=== PATIENT | female | born 1995 | race Caucasian/White ===

== ENCOUNTER 2017-12-10 08:58 | Emergency (ER) | payer SELFPAY ==
[~2017-12-10] VITALS: Ht 160 cm; Wt 65.4 kg
[2017-12-10 09:03] VITALS: BP 128/81
--- NOTE | 2017-12-10 09:15 | NUR ---
C/O THROAT PAIN---PAINFUL TO SWALLOW X YESTERDAY . DENIES N/V/D; SKIN IS PINK/WARM/DRY; AAOX4 WITH EVEN AND STEADY GAIT; LUNGS CLEAR BL; HR EVEN AND REGULAR; PT DENIES ANY FEVER, CP, SOB, OR COUGH AT THIS TIME; PATIENT STATES PAIN OF 10/10 AT THIS TIME; VSS; PATIENT SITTING IN CHAIR .ER MD MADE AWARE OF PT STATUS.
[2017-12-10 12:01] VITALS: BP 118/78
--- NOTE | 2017-12-10 12:02 | NUR ---
Patient discharged with v/s stable. Written and verbal after care instructions given and explained. Patient alert, oriented and verbalized understanding of instructions. Ambulatory with steady gait. All questions addressed prior to discharge. ID band removed. Patient advised to follow up with PMD. Rx of PREDNISONE,AMOXICILLIN, AND IBUPROFEN given. Patient educated on indication of medication including possible reaction and side effects. Opportunity to ask questions provided and answered.
--- NOTE | 2017-12-12 15:21 | NUR ---
THROAT CULTURE RECEIVED. PT SENT HOME ON AMOXCILLIN. DR. THRASHER STATED THE TREATMENT WAS APPROPRIATE.
== END 2017-12-10 12:02 | disposition home or self-care (01) ==
LOC: MED 08:58
DX: J02.0 Streptococcal pharyngitis (principal)
CPT/HCPCS: 87081; 99284

== ENCOUNTER 2018-04-10 16:15 | Emergency (ER) | payer SELFPAY ==
[~2018-04-10] VITALS: Ht 160 cm; Wt 65.3 kg
[2018-04-10 16:22] VITALS: BP 132/74
--- NOTE | 2018-04-10 16:27 | NUR ---
PT AMBULATES TO BED 11
--- NOTE | 2018-04-10 16:32 | NUR ---
22 YO F BIB SELF W/ C/O PAINFUL URINATION 05/16 FOR 1 WEEK. DENIES FEVER/CHILLS, N/V. PT AAOX4. GCS 15. CMS INTACT. RR EVEN AND UNLABORED. LUNGS CLEAR. ER MD DRAPER NOTIFIED. PT NEEDS MET. SAFETY PRECAUTIONS IN PLACE. WILL CONTINUE TO MONITOR.
[2018-04-10 16:54] LABS: APPEARANCE,URINE CLEAR (CLEAR); BILIRUBIN,URINE NEGATIVE (NEGATIVE); BLOOD, URINE NEGATIVE (NEGATIVE); COLOR,URINE YELLOW (YELLOW); LEUKOCYTE ESTERASE ,URINE NEGATIVE (NEGATIVE); NITRITE, URINE NEGATIVE (NEGATIVE); UGLUCOSE NEGATIVE (NEGATIVE)
[2018-04-10 17:06] VITALS: BP 132/74
--- NOTE | 2018-04-10 17:06 | NUR ---
Patient discharged with v/s stable. Written and verbal after care instructions given and explained. Patient alert, oriented and verbalized understanding of instructions. Ambulatory with steady gait. All questions addressed prior to discharge. ID band removed. Patient advised to follow up with PMD. Rx of Doxycycline and Voltaren given. Patient educated on indication of medication including possible reaction and side effects. Opportunity to ask questions provided and answered.
[2018-04-10 17:08] LABS: BARBITURATE, URINE NEG. ng/ml (NEG <=200); BENZODIAZEPINE, URINE NEG. ng/mL (NEG <=200); CANNABINOID, URINE NEG. ng/mL (NEG <=50); COCAINE, URINE NEG. ng/mL (NEG <=300); OPIATE, URINE NEG. ng/mL (NEG <=2000); PHENCYCLIDINE SCREEN,URINE NEG. ng/mL (NEG <=25)
== END 2018-04-10 17:06 | disposition home or self-care (01) ==
LOC: MED 16:15
DX: N39.0 Urinary tract infection, site not specified (principal); N64.4 Mastodynia
CPT/HCPCS: 80305; 81003; 81025; 99284

== ENCOUNTER 2018-04-27 12:26 | Emergency (ER) | payer MEDICAID ==
[~2018-04-27] VITALS: Ht 160 cm; Wt 62.6 kg
[2018-04-27 12:40] VITALS: BP 112/77
--- NOTE | 2018-04-27 12:44 | NUR ---
Patient ambulated to bed 4. RN evaluating patient at bedside.
--- NOTE | 2018-04-27 13:00 | NUR ---
PT C/O SHARP ABD PAIN 7/10 RADIATING FROM LQ TO RQ X 2 DAYS WITH NAUSEA. DENIES VOMITING OR FEVER/CHILLS. HX: UTERINE FIBROIDS
[2018-04-27] MEDS ORDERED: LORazepam 2 MG/ML VIAL IM ONE (13:15)
[2018-04-27 13:29] LABS: APPEARANCE,URINE CLEAR (CLEAR); BILIRUBIN,URINE NEGATIVE (NEGATIVE); BLOOD, URINE NEGATIVE (NEGATIVE); COLOR,URINE YELLOW (YELLOW); LEUKOCYTE ESTERASE ,URINE NEGATIVE (NEGATIVE); NITRITE, URINE NEGATIVE (NEGATIVE); UGLUCOSE NEGATIVE (NEGATIVE)
[2018-04-27 13:40] LABS: BARBITURATE, URINE NEG. ng/ml (NEG <=200); BENZODIAZEPINE, URINE NEG. ng/mL (NEG <=200); CANNABINOID, URINE NEG. ng/mL (NEG <=50); COCAINE, URINE NEG. ng/mL (NEG <=300); OPIATE, URINE POS. ng/mL (NEG <=2000); PHENCYCLIDINE SCREEN,URINE NEG. ng/mL (NEG <=25)
[2018-04-27 14:36] VITALS: BP 122/71
--- NOTE | 2018-04-27 14:36 | NUR ---
Patient discharged with v/s stable. Written and verbal after care instructions given and explained. Patient alert, oriented and verbalized understanding of instructions. Ambulatory with steady gait. All questions addressed prior to discharge. ID band removed. Patient advised to follow up with PMD. Rx of Vistaril given. Patient educated on indication of medication including possible reaction and side effects. Opportunity to ask questions provided and answered.
== END 2018-04-27 14:36 | disposition home or self-care (01) ==
LOC: MED 12:26
DX: G89.29 Other chronic pain (principal); F41.0 Panic disorder [episodic paroxysmal anxiety]; Z88.8 Allergy status to other drugs, medicaments and biological substances; Z88.6 Allergy status to analgesic agent
CPT/HCPCS: 80305; 81003; 81025; 96372; 99284; J2060

== ENCOUNTER 2018-07-12 09:12 | Emergency (ER) | payer MEDICAID, OTHER ==
[~2018-07-12] VITALS: Ht 160 cm; Wt 61.7 kg
[2018-07-12 09:18] VITALS: BP 130/86
--- NOTE | 2018-07-12 09:28 | NUR ---
PT AMB TO BED 11
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
--- NOTE | 2018-07-12 09:33 | NUR ---
Patient being evaluated by DR DRAPER at bedside.
[2018-07-12] MEDS ORDERED: traMADol 50 MG TAB PO ONE (09:35)
[2018-07-12 10:03] LABS: APPEARANCE,URINE CLEAR (CLEAR); BILIRUBIN,URINE NEGATIVE (NEGATIVE); BLOOD, URINE NEGATIVE (NEGATIVE); COLOR,URINE YELLOW (YELLOW); LEUKOCYTE ESTERASE ,URINE NEGATIVE (NEGATIVE); NITRITE, URINE NEGATIVE (NEGATIVE); PH,URINE 5.5 (5.0-9.0); UGLUCOSE NEGATIVE (NEGATIVE)
[2018-07-12 10:07] LABS: BARBITURATE, URINE NEG. ng/ml (NEG <=200); BENZODIAZEPINE, URINE NEG. ng/mL (NEG <=200); CANNABINOID, URINE NEG. ng/mL (NEG <=50); COCAINE, URINE NEG. ng/mL (NEG <=300); OPIATE, URINE NEG. ng/mL (NEG <=2000); PHENCYCLIDINE SCREEN,URINE NEG. ng/mL (NEG <=25)
[2018-07-12 11:23] VITALS: BP 129/77
--- NOTE | 2018-07-12 11:23 | NUR ---
Patient discharged with v/s stable. Written and verbal after care instructions given and explained. Patient alert, oriented and verbalized understanding of instructions. Ambulatory with steady gait. All questions addressed prior to discharge. ID band removed. Patient advised to follow up with PMD. Rx of FIORECET given. Patient educated on indication of medication including possible reaction and side effects. Opportunity to ask questions provided and answered.
== END 2018-07-12 11:23 | disposition home or self-care (01) ==
LOC: MED 09:12
DX: R51 Headache (principal); Z88.1 Allergy status to other antibiotic agents; Z88.6 Allergy status to analgesic agent
CPT/HCPCS: 70450; 72125; 80305; 81003; 81025; 99285

== ENCOUNTER 2019-05-16 12:20 | Emergency (ER) | payer SELFPAY ==
[~2019-05-16] VITALS: Ht 160 cm; Wt 72.6 kg
[2019-05-16 12:30] VITALS: BP 131/70
--- NOTE | 2019-05-16 12:41 | NUR ---
23/f bib self urinary burning sensation x 2 weeks. denies trauma or n/v/d. PATIENT STATES PAIN OF 8/10 when urinated. PATIENT POSITIONED FOR COMFORT; HOB ELEVATED; BEDRAILS UP X1; BED DOWN. ER MD MADE AWARE OF PT STATUS.
--- NOTE | 2019-05-16 12:46 | NUR ---
DR. WEBBER AT BEDSIDE EVALUATING PATIENT AT THIS TIME.
[2019-05-16 13:01] VITALS: BP 127/68
[2019-05-16 14:22] LABS: APPEARANCE,URINE HAZY (CLEAR); BILIRUBIN,URINE NEGATIVE (NEGATIVE); BLOOD, URINE NEGATIVE (NEGATIVE); COLOR,URINE YELLOW (YELLOW); LEUKOCYTE ESTERASE ,URINE NEGATIVE (NEGATIVE); NITRITE, URINE NEGATIVE (NEGATIVE); UGLUCOSE NEGATIVE (NEGATIVE)
== END 2019-05-16 13:07 | disposition home or self-care (01) ==
LOC: MED 12:20
DX: N39.0 Urinary tract infection, site not specified (principal); Z88.2 Allergy status to sulfonamides; Z88.1 Allergy status to other antibiotic agents; Z88.8 Allergy status to other drugs, medicaments and biological substances
CPT/HCPCS: 81003; 81025; 99283

== ENCOUNTER 2020-08-16 16:00 | Emergency (ER) | payer OTHER ==
[~2020-08-16] VITALS: Ht 157.5 cm; Wt 0.5 kg
[2020-08-16 16:08] VITALS: BP 140/77
[2020-08-16] MEDS ORDERED: HYDROcodone/APAP 5/325 MG 1 TAB TAB PO ONE (16:35)
[2020-08-16] MEDS ORDERED: DOCUSATE SODIUM 100 MG GELCAP PO ONE (16:35)
[2020-08-16 16:54] VITALS: BP 140/77
== END 2020-08-16 16:54 | disposition home or self-care (01) ==
LOC: MED 16:00
DX: H65.93 Unspecified nonsuppurative otitis media, bilateral (principal); R51.9 Headache, unspecified; G93.0 Cerebral cysts; Z88.1 Allergy status to other antibiotic agents; Z88.2 Allergy status to sulfonamides; Z88.6 Allergy status to analgesic agent
CPT/HCPCS: 81002; 81025; 99283

== ENCOUNTER 2020-12-24 05:06 | Emergency (ER) | payer OTHER ==
[~2020-12-24] VITALS: Ht 160 cm; Wt 78.9 kg
[2020-12-24 05:17] VITALS: BP 121/82
[2020-12-24] MEDS ORDERED: NACL 0.9% 1,000 ML IV ONE (05:30)
[2020-12-24] MEDS ORDERED: ONDANSETRON 4 MG/2 ML VIAL IVP ONE (05:35)
[2020-12-24 06:51] LABS: BASOPHILS # (AUTO) 0.1 K/uL (0.00-0.22); BASOPHILS % (AUTO) 0.8 % (0.0-2.0); EOSINOPHILS # (AUTO) 0.2 K/uL (0-0.4); HEMATOCRIT 34.2 % (36-48); HEMOGLOBIN 11.6 g/dL (12.0-16.0); LYMPHOCYTES # (AUTO) 2.4 K/uL (2.5-16.5); LYMPHOCYTES % (AUTO) 24.2 % (20.5-51.1); MEAN CORPUSCULAR HEMOGLOBIN 28 pg (27-31); MEAN CORPUSCULAR HGB CONC 34 g/dL (33-37); MEAN CORPUSCULAR VOLUME 81.8 fL (80-94); MONOCYTES # (AUTO) 0.6 K/uL (0.8-1.0); MONOCYTES % (AUTO) 6.1 % (1.7-9.3); NEUTROPHILS # (AUTO) 6.7 K/uL (1.8-7.7); NEUTROPHILS % (AUTO) 66.9 % (42.2-75.2); PLATELET COUNT (AUTO) 264 K/uL (140-450); RED BLOOD CELL COUNT(AUTO) 4.18 MIL/uL (4.20-5.40); RED CELL DISTRIBUTION WIDTH 14.2 % (11.6-13.7)
[2020-12-24] MEDS ORDERED: ACETAMINOPHEN 325 MG TAB PO ONE (07:00)
[2020-12-24] MEDS ORDERED: METOCLOPRAMIDE 10 MG/2 ML INJ VIAL IVP ONE (07:00)
[2020-12-24 07:08] LABS: ALBUMIN 3.6 g/dL (3.4-5.0); BILIRUBIN,DIRECT 0.1 mg/dL (0.0-0.3); PHOSPHORUS 4.1 mg/dL (2.5-4.9); TOTAL BILIRUBIN 0.3 mg/dL (0.0-1.0)
[2020-12-24 07:09] LABS: BILIRUBIN,URINE NEGATIVE (NEGATIVE); BLOOD, URINE NEGATIVE (NEGATIVE); COLOR,URINE YELLOW (YELLOW); LEUKOCYTE ESTERASE ,URINE 1+ (NEGATIVE); NITRITE, URINE NEGATIVE (NEGATIVE); UGLUCOSE NEGATIVE (NEGATIVE)
[2020-12-24 07:14] LABS: ANION GAP 14.7 (8-16); CARBON DIOXIDE 24.6 mmol/L (21-32); POTASSIUM 3.3 mmol/L (3.5-5.1)
[2020-12-24 07:15] LABS: CREATININE 0.5 mg/dL (0.6-1.3)
[2020-12-24 07:26] LABS: APPEARANCE,URINE SLIGHTLY HAZY (CLEAR)
[2020-12-24 07:27] LABS: RBC,URINE 0-5 /HPF (0-5); WBC,URINE 0-5 /HPF (0-5)
[2020-12-24] MEDS ORDERED: ACET-2619 PO (07:41)
[2020-12-24] MEDS ORDERED: DOXY1TCP PO (07:41)
[2020-12-24 09:21] VITALS: BP 121/82
== END 2020-12-24 09:21 | disposition home or self-care (01) ==
LOC: MED 05:06
DX: O00.01 Abdominal pregnancy with intrauterine pregnancy (principal); O99.612 Diseases of the digestive system complicating pregnancy, second trimester; K80.20 Calculus of gallbladder without cholecystitis without obstruction; Z3A.18 18 weeks gestation of pregnancy; Z88.2 Allergy status to sulfonamides; Z88.8 Allergy status to other drugs, medicaments and biological substances
CPT/HCPCS: 36415; 76705; 80048; 80076; 81001; 81025; 83690; 83735; 84100; 85025; 86886; 86900; 86901; 87040; 87086; 96374; 96375; 99284; J2405; J2765; J2790

== ENCOUNTER 2022-07-23 15:44 | Emergency (ER) | payer OTHER ==
[~2022-07-23] VITALS: Ht 160 cm; Wt 67.1 kg
[~2022-07-23 15:44] MED LIST: ACET-2619 PO; DOXY1TCP PO
[2022-07-23 15:59] VITALS: BP 127/85
[2022-07-23 16:58] LABS: BASOPHILS % (AUTO) 0.6 % (0.0-2.0); EOSINOPHILS # (AUTO) 0.1 K/uL (0-0.4); EOSINOPHILS % (AUTO) 1.5 % (0.0-4.0); HEMATOCRIT 38.2 % (36-48); HEMOGLOBIN 12.8 g/dL (12.0-16.0); LYMPHOCYTES # (AUTO) 2.6 K/uL (2.5-16.5); LYMPHOCYTES % (AUTO) 37.8 % (20.5-51.1); MEAN CORPUSCULAR HEMOGLOBIN 28 pg (27-31); MEAN CORPUSCULAR HGB CONC 34 g/dL (33-37); MEAN CORPUSCULAR VOLUME 83.2 fL (80-94); MONOCYTES # (AUTO) 0.2 K/uL (0.8-1.0); MONOCYTES % (AUTO) 3.6 % (1.7-9.3); NEUTROPHILS # (AUTO) 3.8 K/uL (1.8-7.7); NEUTROPHILS % (AUTO) 56.5 % (42.2-75.2); PLATELET COUNT (AUTO) 265 K/uL (140-450); RED BLOOD CELL COUNT(AUTO) 4.59 MIL/uL (4.20-5.40); RED CELL DISTRIBUTION WIDTH 13.4 % (11.6-13.7); WHITE BLOOD COUNT (AUTO) 6.8 K/uL (4.8-10.8)
[2022-07-23 17:18] LABS: ANION GAP 13.2 (8-16); ASPARTATE AMINOTRANSFERASE 11 U/L (15-37); CARBON DIOXIDE 26.1 mmol/L (21-32); CHLORIDE 105 mmol/L (98-107); GLUCOSE 109 mg/dL (74-106); POTASSIUM 3.3 mmol/L (3.5-5.1); SODIUM SERUM 141 mmol/L (136-145); TOTAL BILIRUBIN 0.3 mg/dL (0.0-1.0); UREA NITROGEN, BLOOD 13 mg/dL (7-18)
[2022-07-23 17:31] LABS: CREATININE 0.6 mg/dL (0.6-1.3); GFR ARICAN-AMERICAN 157 mL/min (>90)
[2022-07-23] MEDS ORDERED: ACET-10509 PO (18:42)
[2022-07-23] MEDS ORDERED: LID5T TP (18:42)
[2022-07-23] MEDS ORDERED: METH-1681 PO (18:42)
--- NOTE | 2022-07-23 19:25 | NUR ---
donna ling assessing patient in A
[2022-07-23 19:30] VITALS: BP 125/83
--- NOTE | 2022-07-23 19:30 | NUR ---
Patient seen and assessed by NEDA ling. no nursing interventions done. ID band removed. Patient advised to follow up with PMD. Rx of acetaminophen, lidocaine, robaxin given. Patient educated on indication of medication including possible reaction and side effects. Opportunity to ask questions provided and answered.
== END 2022-07-23 19:30 | disposition home or self-care (01) ==
LOC: MED 15:44
DX: R07.89 Other chest pain (principal)
CPT/HCPCS: 36415; 71045; 80053; 84484; 85025; 85379; 93005; 99285

== ENCOUNTER 2022-09-13 01:49 | Emergency (ER) | payer OTHER ==
[~2022-09-13] VITALS: Ht 160 cm; Wt 56.7 kg
[~2022-09-13 01:49] MED LIST changes: +ACET-10509 PO; +LID5T TP; +METH-1681 PO
[2022-09-13 02:05] VITALS: BP 124/80
--- NOTE | 2022-09-13 02:09 | NUR ---
TO LOBBY A/W BED AMBULATORY
--- NOTE | 2022-09-13 04:00 | NUR ---
RECEIVED IN BED 5 WITH C/O POSSIBLE RETENTION OF TAMPON PARTICLES
--- NOTE | 2022-09-13 04:15 | NUR ---
PELVIC EXAM DONE PER DR ROMERO, FEMALE REGISTERED PHYSICAL THERAPIST (MYSELF) ACCOMPANYING
[2022-09-13 04:25] VITALS: BP 124/80
--- NOTE | 2022-09-13 04:25 | NUR ---
Patient discharged with v/s stable. Written and verbal after care instructions given and explained. Patient verbalized understanding. Ambulatory with steady gait. All questions addressed prior to discharge. Advised to follow up with PMD.
== END 2022-09-13 04:25 | disposition home or self-care (01) ==
LOC: MED 01:49
DX: T19.2XXA Foreign body in vulva and vagina, initial encounter (principal); N94.89 Other specified conditions associated with female genital organs and menstrual cycle; Z88.1 Allergy status to other antibiotic agents; Z88.2 Allergy status to sulfonamides; Z88.8 Allergy status to other drugs, medicaments and biological substances; Z79.899 Other long term (current) drug therapy; X58.XXXA Exposure to other specified factors, initial encounter; Y93.89 Activity, other specified; Y92.89 Other specified places as the place of occurrence of the external cause; Y99.8 Other external cause status
CPT/HCPCS: 99281; 99284

== ENCOUNTER 2022-10-05 04:23 | Emergency (ER) | payer OTHER ==
[~2022-10-05] VITALS: Ht 160 cm; Wt 65.8 kg
[2022-10-05 04:45] VITALS: BP 124/84
--- NOTE | 2022-10-05 04:48 | NUR ---
TO LOBBY A/W BED AMBULATORY
[2022-10-05 07:04] VITALS: BP 114/72
[2022-10-05] MEDS ORDERED: DICYCLOMINE HCL LIQUID 20 MG, ALUMINUM HYD/MAG/SIMETHICONE 30 ML, LIDOCAINE VISCOUS 2% ... PO ONE ×3 (07:15)
[2022-10-05] MEDS ORDERED: ONDANSETRON 4 MG ODT PO ONE (07:15)
--- NOTE | 2022-10-05 07:15 | NUR ---
Patient being evaluated by physician at bedside.
--- NOTE | 2022-10-05 07:20 | NUR ---
Transfer of care to Julio CEDEÑO
[2022-10-05] MEDS ORDERED: ALUMINUM HYD/MAG/SIMETHICONE 30 ML UDC ONE (07:44)
[2022-10-05] MEDS ORDERED: DICYCLOMINE HCL LIQUID 10 MG/5 ML UDC ONE (07:45)
[2022-10-05] MEDS ORDERED: IBUP-2213 PO (08:12)
[2022-10-05] MEDS ORDERED: OMEP40EC24 PO (08:12)
[2022-10-05] MEDS ORDERED: ONDA8TAB87 PO (08:12)
--- NOTE | 2022-10-05 08:17 | NUR ---
Patient discharged with v/s stable. Written and verbal after care instructions given and explained. Patient alert, oriented and verbalized understanding of instructions. Ambulatory with steady gait. All questions addressed prior to discharge. ID band removed. Patient advised to follow up with PMD. Rx of Ibuprofen, Prilosec and Zofran given. Patient educated on indication of medication including possible reaction and side effects. Opportunity to ask questions provided and answered.
== END 2022-10-05 08:17 | disposition home or self-care (01) ==
LOC: MED 04:23
DX: R10.13 Epigastric pain (principal); R11.0 Nausea; Z88.2 Allergy status to sulfonamides; Z88.1 Allergy status to other antibiotic agents; Z88.8 Allergy status to other drugs, medicaments and biological substances; Z79.899 Other long term (current) drug therapy
CPT/HCPCS: 81025; 99283; Q0162

== ENCOUNTER 2023-02-17 18:44 | Emergency (ER) | payer OTHER ==
[~2023-02-17] VITALS: Ht 157.5 cm; Wt 71.2 kg
[~2023-02-17 18:44] MED LIST changes: +IBUP-2213 PO; +OMEP40EC24 PO; +ONDA8TAB87 PO
[2023-02-17 19:04] VITALS: BP 132/82
[2023-02-17] MEDS ORDERED: NITROFURANTOIN 100 MG CAP PO ONE (21:55)
[2023-02-17] MEDS ORDERED: PHENAZOPYRIDINE 100 MG TAB PO ONE (22:05)
--- NOTE | 2023-02-17 22:06 | NUR ---
PER ADMITING PT LEFT
--- NOTE | 2023-02-17 22:06 | NUR ---
Rah melgar in ED - 02/18/23 at 0019 by [facility] PATIENT ELOPED FROM FACILITY. DISCHARGE INSTRUCTIONS NOT GIVEN TO PATIENT. DR. WEBBER NOTIFIED.
== END 2023-02-17 22:06 | disposition left against medical advice (07) ==
LOC: MED 18:44
DX: R09.81 Nasal congestion (principal); Z53.21 Procedure and treatment not carried out due to patient leaving prior to being seen by health care provider
CPT/HCPCS: 99281

== ENCOUNTER 2023-07-14 14:14 | Emergency (ER) | payer OTHER ==
[~2023-07-14] VITALS: Ht 160 cm; Wt 71.2 kg
[2023-07-14 14:50] VITALS: BP 127/70; PULSE 89; RESP 18; TEMP 98.2; O2SAT 100
[2023-07-14] MEDS ORDERED: ALUMINUM HYD/MAG/SIMETHICONE 30 ML UDC PO ONE (15:15)
[2023-07-14] MEDS ORDERED: FAMOTIDINE 20 MG TAB PO ONE (15:15)
[2023-07-14 15:20] VITALS: O2SAT 89
[2023-07-14] MEDS ORDERED: ACETAMINOPHEN EXTRA STRENGTH 500 MG TAB PO ONE (15:20)
[2023-07-14] MEDS ORDERED: FAMO-90 PO (15:54)
[2023-07-14] MEDS ORDERED: ALUM355S59 PO (15:55)
[2023-07-14 17:21] VITALS: BP 127/70; PULSE 89; RESP 18; TEMP 98.2; O2SAT 89
== END 2023-07-14 16:54 | disposition home or self-care (01) ==
LOC: MED 14:14
DX: R07.89 Other chest pain (principal); K21.9 Gastro-esophageal reflux disease without esophagitis; R09.89 Other specified symptoms and signs involving the circulatory and respiratory systems; Z79.899 Other long term (current) drug therapy; Z79.1 Long term (current) use of non-steroidal anti-inflammatories (NSAID); Z88.2 Allergy status to sulfonamides; Z88.1 Allergy status to other antibiotic agents; Z88.6 Allergy status to analgesic agent
CPT/HCPCS: 71045; 81025; 93005; 99284

== ENCOUNTER 2023-09-24 01:20 | Emergency (ER) | payer OTHER ==
[~2023-09-24] VITALS: Ht 160 cm; Wt 70.3 kg
[~2023-09-24 01:20] MED LIST changes: +ALUM355S59 PO; +FAMO-90 PO
[2023-09-24 01:26] VITALS: BP 120/90; PULSE 88; RESP 16; TEMP 98.2; O2SAT 100
[2023-09-24] MEDS ORDERED: IBUPROFEN 600 MG TAB PO ONE (02:25)
[2023-09-24] MEDS ORDERED: ONDANSETRON 4 MG ODT PO ONE (02:25)
[2023-09-24] MEDS ORDERED: ACET-9496 PO (03:58)
[2023-09-24] MEDS ORDERED: ONDA-188 PO (03:59)
[2023-09-24 04:13] VITALS: BP 112/72; PULSE 78; RESP 16; TEMP 98.2; O2SAT 100
== END 2023-09-24 04:13 | disposition home or self-care (01) ==
LOC: MED 01:20
DX: R51.9 Headache, unspecified (principal); K21.9 Gastro-esophageal reflux disease without esophagitis; Z88.2 Allergy status to sulfonamides; Z79.1 Long term (current) use of non-steroidal anti-inflammatories (NSAID); Z88.8 Allergy status to other drugs, medicaments and biological substances; Z79.899 Other long term (current) drug therapy
CPT/HCPCS: 70450; 81025; 99284; Q0162

== ENCOUNTER 2024-02-25 12:06 | Emergency (ER) | payer OTHER ==
[~2024-02-25] VITALS: Ht 160 cm; Wt 72.6 kg
[~2024-02-25 12:06] MED LIST changes: +ACET-9496 PO; +ONDA-188 PO
[2024-02-25 12:14] VITALS: BP 129/70; PULSE 93; RESP 18; TEMP 97.8; O2SAT 98
[2024-02-25] MEDS ORDERED: ACET-9882 PO (13:04)
== END 2024-02-25 13:14 | disposition home or self-care (01) ==
LOC: MED 12:06
DX: S83.92XA Sprain of unspecified site of left knee, initial encounter (principal); R03.0 Elevated blood-pressure reading, without diagnosis of hypertension; K21.9 Gastro-esophageal reflux disease without esophagitis; Z79.1 Long term (current) use of non-steroidal anti-inflammatories (NSAID); Z79.899 Other long term (current) drug therapy; Z88.8 Allergy status to other drugs, medicaments and biological substances; Z88.2 Allergy status to sulfonamides; Z88.1 Allergy status to other antibiotic agents; Z88.6 Allergy status to analgesic agent; X58.XXXA Exposure to other specified factors, initial encounter; Y93.66 Activity, soccer; Y92.89 Other specified places as the place of occurrence of the external cause; Y99.8 Other external cause status
CPT/HCPCS: 73562; 99283

== ENCOUNTER 2024-04-14 04:37 | Emergency (ER) | payer OTHER ==
[~2024-04-14] VITALS: Ht 160 cm; Wt 83.9 kg
[~2024-04-14 04:37] MED LIST changes: +ACET-9882 PO
[2024-04-14 04:45] VITALS: BP 130/87; PULSE 89; RESP 18; TEMP 98.5; O2SAT 99
[2024-04-14] MEDS ORDERED: FAMO-90 PO (05:03)
[2024-04-14] MEDS ORDERED: SUCR1TAB56 PO (05:03)
[2024-04-14] MEDS ORDERED: ALUMINUM HYD/MAG/SIMETHICONE 30 ML UDC ONE (05:08)
[2024-04-14] MEDS ORDERED: DICYCLOMINE HCL LIQUID 10 MG/5 ML UDC ONE (05:08)
[2024-04-14] MEDS: DICYCLOMINE HCL LIQUID 20 MG, ALUMINUM HYD/MAG/SIMETHICONE 30 ML, LIDOCAINE VISCOUS 2% ... PO ONE (05:11)
[2024-04-14 05:27] VITALS: BP 130/87; PULSE 89; RESP 18; TEMP 98.5; O2SAT 99
== END 2024-04-14 05:27 | disposition home or self-care (01) ==
LOC: MED 04:37
DX: K21.9 Gastro-esophageal reflux disease without esophagitis (principal); Z79.899 Other long term (current) drug therapy; Z88.2 Allergy status to sulfonamides; Z88.1 Allergy status to other antibiotic agents; Z88.6 Allergy status to analgesic agent
CPT/HCPCS: 93005; 99283